=== PATIENT | male | born 1990 | race Two or more races ===

== ENCOUNTER 2018-11-08 20:45 | Emergency (ER) | payer BC ==
[~2018-11-08] VITALS: Ht 182.9 cm; Wt 130.6 kg
[2018-11-08 23:18] VITALS: BP 157/95
[2018-11-08] MEDS ORDERED: diazePAM 5 MG TABLET PO ONE (23:55)
[2018-11-08] MEDS ORDERED: DEXAMETHASONE SOD PHOS 20 MG/5 ML VIAL. IM ONE (23:55)
[2018-11-08] MEDS ORDERED: ORPH100T PO (23:56)
[2018-11-08] MEDS ORDERED: NAPR-514 PO (23:56)
--- NOTE | 2018-11-08 23:56 | PHYS DOC ---
Past Medical History Past Medical History: No Pertinent History Additional Past Medical Histor: CHRONIC BACK PAIN (RUBEN TOLEDO APRN) Past Surgical History: No Surgical History (RUBEN TOLEDO APRN) Alcohol Use: None Drug Use: None Social History Narrative: PT REPORTS THAT HE QUIT USING ALCOHOL AND DRUGS 4 WEEKS AGO (RUBEN TOLEDO APRN) Adult General Chief Complaint Chief Complaint: BACK PAIN OR INJURY HPI HPI Patient is a 28 year old male who presents to the ER with complaints of low back pain. He reports a hx of chronic sciatica in both legs. Tonight the pain is effecting his left low back and left leg. Pt states he is out of his muscle relaxers, he is unsure of what the medication name is. He denies any saddle anesthesia, loss of bowel/bladder control, or recent injury. His pain is a 10/ 10 at this time, there are no alleviating factors. The pain increases with movement. (RUBEN TOLEDO APRN) Review of Systems Review of Systems Constitutional: Denies fever or chills [] Musculoskeletal: See HPI Integument: Denies rash or skin lesions [] Neurologic: Denies headache, focal weakness or sensory changes [] (RUBEN TOLEDO APRN) Current Medications Current Medications Current Medications Medications (Trade) Dose Ordered Sig/Gabino Start Time Stop Time Status Last Admin Dose Admin Dexamethasone Sodium Phosphate (Decadron) 10 mg 1X ONCE 11/08/18 23:55 11/08/18 23:56 DC 11/09/18 00:01 10 MG Diazepam (Valium) 5 mg 1X ONCE 11/08/18 23:55 11/08/18 23:56 DC 11/09/18 00:00 5 MG (BALDOMERO MEJIA MD) Allergies Allergies Allergies Coded Allergies Type Severity Reaction Last Updated Verified No Known Drug Allergies 07/30/14 No (BALDOMERO MEJIA MD) Physical Exam Physical Exam Constitutional: Well developed, well nourished, no acute distress, non-toxic appearance, obese. [] HENT: Normocephalic, atraumatic, bilateral external ears normal, nose normal. [ ] Eyes: conjunctiva normal, no discharge. [] Neck: Normal range of motion, no stridor. [] Lungs & Thorax: respirations even and unlabored. Skin: Warm, dry, no erythema, no rash. [] Back: No bony tenderness, left lumbar paraspinal TTP, left straight leg lift positive for increased pain Extremities: No cyanosis, ROM intact Neurologic: Alert and oriented X 3, normal motor function, normal sensory function, no focal deficits noted. [] Psychologic: Affect normal, judgement normal, mood normal. [] (RUBEN TOLEDO APRN) Current Patient Data Vital Signs Vital Signs Date Time Temp Pulse Resp B/P (MAP) Pulse Ox O2 Delivery O2 Flow Rate FiO2 11/08/18 23:18 98.3 76 18 157/95 (115) 99 Room Air 98.3 (BALDOMERO MEJIA MD) EKG EKG [] (RUBEN TOLEDO APRN) Radiology/Procedures Radiology/Procedures [] (RUBEN TOLEDO APRN) Course & Med Decision Making Course & Med Decision Making Pertinent Labs and Imaging studies reviewed. (See chart for details) Dx: chronic back pain Patient was given 5 mg of by mouth Valium, and 10 mg of IM Decadron in the emergency department. Prescription was written for 100 mg of orphenadrine twice a day 10 days and 500 mg of naproxen twice a day 10 days. Patient was instructed to follow-up with primary care doctor, return to the ER symptoms worsen. Patient verbalized an understanding of home care, medications, follow-up, and return to ED instructions and was in agreement with the plan of care. [] (RUBEN TOLEDO APRN) Course & Med Decision Making Staff Physician Addendum: I was working in the ER during the course of this patient's visit. I was available for consultation as needed, but I was not directly involved in the care of this patient. (BALDOMERO MEJIA MD) Dragon Disclaimer Dragon Disclaimer This electronic medical record was generated, in whole or in part, using a voice recognition dictation system. (RUBEN TOLEDO APRN) Departure Departure Impression: Primary Impression: Chronic low back pain with left-sided sciatica Disposition: HOME, SELF-CARE Condition: STABLE Referrals: NO PCP (PCP) Patient Instructions: Sciatica, [id number] Additional Instructions: Fill prescriptions and use them as directed. Activity as tolerated. Follow-up with your primary care doctor if symptoms persist, return to the ER symptoms worsen. Scripts Naproxen (NAPROXEN) 500 Mg Tablet 1 TAB PO BID PRN for PAIN for 10 Days, #20 TAB 0 Refills Prov: RUBEN TOLEDO APRN 11/08/18 Orphenadrine Citrate (ORPHENADRINE CITRATE) 100 Mg Tablet.er 1 TAB PO BID PRN for PAIN for 10 Days, #20 TAB 0 Refills Prov: RUBEN TOLEDO APRN 11/08/18 Problem Qualifiers Primary Impression: Chronic low back pain with left-sided sciatica Back pain laterality: left Qualified Codes: M54.42 - Lumbago with sciatica, left side; G89.29 - Other chronic pain RUBEN TOLEDO APRN Nov 08, 2018 23:56 BALDOMERO MEJIA MD Nov 13, 2018 07:53
== END 2018-11-09 00:16 | disposition home or self-care (01) ==
LOC: ER 20:45
DX: M54.42 Lumbago with sciatica, left side (principal); G89.29 Other chronic pain
CPT/HCPCS: 96372; 99283; J1100

== ENCOUNTER 2018-11-11 12:52 | Emergency (ER) | payer BC ==
[~2018-11-11] VITALS: Ht 182.9 cm; Wt 128.4 kg
[~2018-11-11 12:52] MED LIST: NAPR-514 PO; ORPH100T PO
[2018-11-11 13:19] VITALS: BP 157/95
[2018-11-11] MEDS: NAPROXEN 500 MG TABLET PO STA (13:28)
--- NOTE | 2018-11-11 13:28 | PHYS DOC ---
Past Medical History Past Medical History: No Pertinent History Additional Past Medical Histor: CHRONIC BACK PAIN Past Surgical History: No Surgical History Alcohol Use: None Drug Use: None Adult General Chief Complaint Chief Complaint: BACK PAIN - NO INJURY HPI HPI Patient is a 28 year old male with history of chronic low back pain presenting today complaining of 10 out of 10 left low back pain chronic in nature. She denies any known injury. Denies any numbness or tingling to bilateral lower extremities, denies any loss of bowel/bladder function. He states the pain radiates to the left lower extremity. He states his been following up with a chiropractor. He states the chiropractor recommended he gets an MRI of his lumbar spine. Patient is loud as we talk stating he was seen in the ED 3 days ago and given a muscle relaxer which is doing nothing for him. He states he was also given naproxen which is doing nothing for pain. He states he was given a steroid shot in the ED which did nothing for him. He is demanding pain medicine now. Informed him we can give him pain medicine in the Ed but he has no indication for narcotic pain medicine at home. RX for diclofenac and cyclobenzaprine as well as medrol dose pack provided. Review of Systems Review of Systems Constitutional: Denies fever or chills [] Musculoskeletal: Reports chronic low back pain radiating to the left lower extremity Integument: Denies rash or skin lesions [] Neurologic: Denies headache, focal weakness or sensory changes [] All other systems were reviewed and found to be within normal limits, except as documented in this note. Current Medications Current Medications Current Medications Medications (Trade) Dose Ordered Sig/Gabino Start Time Stop Time Status Last Admin Dose Admin Acetaminophen/ Hydrocodone Bitart (Lortab 5/325) 2 tab 1X ONCE 11/11/18 13:30 11/11/18 13:31 DC 11/11/18 13:41 2 TAB Cyclobenzaprine HCl (Flexeril) 10 mg 1X ONCE 11/11/18 13:30 11/11/18 13:31 DC 11/11/18 13:41 10 MG Naproxen (Naprosyn) 500 mg 1X STAT 11/11/18 13:28 11/11/18 13:31 DC 11/11/18 13:28 500 MG Allergies Allergies Allergies Coded Allergies Type Severity Reaction Last Updated Verified No Known Drug Allergies 07/30/14 No Physical Exam Physical Exam Constitutional: Well developed, well nourished, no acute distress, non-toxic appearance. [] Abdomen: Bowel sounds normal, soft, no tenderness, no masses, no pulsatile masses. [] Skin: Warm, dry, no erythema, no rash. [] Back: No tenderness, no CVA tenderness. [] Extremities: No tenderness, no cyanosis, no clubbing, ROM intact, no edema. [] Neurologic: Alert and oriented X 3, normal motor function, normal sensory function, no focal deficits noted. [] Psychologic: Affect normal, judgement normal, mood normal. [] Current Patient Data Vital Signs Vital Signs Date Time Temp Pulse Resp B/P (MAP) Pulse Ox O2 Delivery O2 Flow Rate FiO2 11/11/18 13:41 16 99 Room Air 11/11/18 13:19 98.6 84 157/95 (115) 98.6 EKG EKG [] Radiology/Procedures Radiology/Procedures [] Course & Med Decision Making Course & Med Decision Making Pertinent Labs and Imaging studies reviewed. (See chart for details) see HPI Dragon Disclaimer Dragon Disclaimer This electronic medical record was generated, in whole or in part, using a voice recognition dictation system. Departure Departure Impression: Primary Impression: Chronic low back pain with left-sided sciatica Disposition: HOME, SELF-CARE Condition: STABLE Referrals: NO PCP (PCP) CESILIA MÉNDEZ MD call the office and follow up as soon as you can Patient Instructions: Back Pain, Adult, Sciatica, [id number] Additional Instructions: You have chronic low back pain. We provided you a pain clinic doctor, contact the office and follow-up with as soon as you can. We also provided you doctor' s list with primary care doctors, establish care with them and follow-up for your chronic back pain. Scripts Cyclobenzaprine Hcl (CYCLOBENZAPRINE HCL) 10 Mg Tablet 1 TAB PO TID, #30 TAB Prov: JEREMIAH KEN SURGICAL SCRUB TECHNICIAN 11/11/18 Diclofenac Sodium (DICLOFENAC SODIUM) 50 Mg Tablet.dr 1 TAB PO BID, #20 TAB 0 Refills Prov: MUTUNGAJEREMIAH SURGICAL SCRUB TECHNICIAN 11/11/18 Methylprednisolone (MEDROL) 4 Mg Tab.ds.pk 1 PKG PO UD, #1 PKG Prov: MUTUNGA,JEREMIAH SURGICAL SCRUB TECHNICIAN 11/11/18 Problem Qualifiers Primary Impression: Chronic low back pain with left-sided sciatica Back pain laterality: left Qualified Codes: M54.42 - Lumbago with sciatica, left side; G89.29 - Other chronic pain JEREMIAH KEN APRN Nov 11, 2018 13:28
[2018-11-11] MEDS: HYDROcodone/APAP 5/325MG 1 TAB TABLET PO ONE (13:41)
[2018-11-11] MEDS: CYCLOBENZAPRINE 10 MG TABLET. PO ONE (13:41)
[2018-11-11] MEDS ORDERED: METH4TAB2 PO (13:53)
[2018-11-11] MEDS ORDERED: DICL50TA4 PO (13:53)
[2018-11-11] MEDS ORDERED: CYCL10TA2 PO (13:53)
== END 2018-11-11 14:01 | disposition home or self-care (01) ==
LOC: ER 12:52
DX: G89.29 Other chronic pain (principal); M54.42 Lumbago with sciatica, left side
CPT/HCPCS: 99284

== ENCOUNTER 2019-12-22 10:11 | Emergency (ER) | payer BC ==
[~2019-12-22] VITALS: Ht 185.4 cm; Wt 127.0 kg
[~2019-12-22 10:11] MED LIST changes: +CYCL10TA2 PO; +DICL50TA4 PO; +METH4TAB2 PO
[2019-12-22 10:55] VITALS: BP 154/95
[2019-12-22] MEDS ORDERED: KETOROLAC 60 MG/2 ML VIAL. IM ONE (12:00)
--- NOTE | 2019-12-22 12:04 | PHYS DOC ---
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 Patient stated he had low back pain with radiation to posterior of left lower extremity started 6 weeks ago and was seen by a chiropractor with improvement of his pain but for the last 3 weeks has had constant left lower extremity pain and numbness that getting worse with activity. Patient denies injury, weakness, urine or bowel incontinence, abdominal pain, nausea and vomiting, urinary symptom. Patient stated he took oxycodone that he bought from the street without improvement of his pain. Review of Systems: Review of Systems: Constitutional: Denies fever or chills. [] Eyes: Denies change in visual acuity. [] HENT: Denies nasal congestion or sore throat. [] Respiratory: Denies cough or shortness of breath. [] Cardiovascular: Denies chest pain or edema. [] GI: Denies abdominal pain, nausea, vomiting, bloody stools or diarrhea. [] : Denies dysuria. [] Musculoskeletal: Reports back and joint pain Integument: Denies rash. [] Neurologic: Denies headache, focal weakness or sensory changes. [] Endocrine: Denies polyuria or polydipsia. [] Lymphatic: Denies swollen glands. [] Psychiatric: Denies depression or anxiety. [] Heart Score: Risk Factors: Risk Factors: DM, Current or recent (<one month) smoker, HTN, HLP, family history of CAD, obesity. Risk Scores: Score 0 - 3: 2.5% MACE over next 6 weeks - Discharge Home Score 4 - 6: 20.3% MACE over next 6 weeks - Admit for Clinical Observation Score 7 - 10: 72.7% MACE over next 6 weeks - Early Invasive Strategies Allergies: Allergies: Allergies Coded Allergies Type Severity Reaction Last Updated Verified No Known Drug Allergies 07/30/14 No Physical Exam: PE: Constitutional: Well developed, well nourished, mild distress, non-toxic a ppearance. [] HENT: Normocephalic, atraumatic. Eyes: PERRLA, EOMI, conjunctiva normal, no discharge. [] Neck: Normal range of motion, no tenderness, supple, no stridor. [] Cardiovascular:Heart rate regular rhythm, no murmur [] Lungs & Thorax: Bilateral breath sounds clear to auscultation [] Abdomen: Bowel sounds normal, soft, no tenderness, no masses, no pulsatile masses. [] Skin: Warm, dry, no erythema, no rash. [] Back: No midline tenderness, no CVA tenderness. [] Extremities: Left lower extremity with bony mass in medial of knee that according to the patient was there since he was a child with no change of size. No tenderness, subjective paresthesia of left lower extremity, no cyanosis, no clubbing, ROM intact, no edema. [] Neurologic: Alert and oriented X 3, no focal deficits noted. [] Psychologic: Affect anxious, judgement normal, mood normal. [] Current Patient Data: Vital Signs: Vital Signs Date Time Temp Pulse Resp B/P (MAP) Pulse Ox O2 Delivery O2 Flow Rate FiO2 12/22/19 10:55 98.2 90 16 154/95 (114) 98 Room Air 98.2 EKG: EKG: [] Radiology/Procedures: Radiology/Procedures: [facility] [address] [place], [place] [id number] IMAGING REPORT Signed PATIENT: RAISSA VIZCARRA ACCOUNT: [id number] : 1990 LOCATION: ER AGE: 29 SEX: M EXAM STATUS: REG ER ORD. PHYSICIAN: MARLO DOWELL MD REASON: low back pain x 6 weeks PROCEDURE: CT LUMBAR SPINE WO CONTRAST Examination: CT lumbar spine and pelvis without contrast HISTORY: History of low back pain COMPARISON: None available Technique: Axial CT images of the lumbar spine were performed without contrast. Axial CT images of the pelvis performed without contrast. Coronal and sagittal deformities are performed Exposure: One or more of the following individualized dose reduction techniques were utilized for this examination: 1. Automated exposure control 2. Adjustment of the mA and/or kV according to patient size 3. Use of iterative reconstruction technique FINDINGS: The lumbar vertebral body heights are maintained. The bilateral facets are well aligned. Minimal disc bulge identified at L1-L2, L2-L3 vertebral level causing minimal anterior thecal sac impression. There is posterior disc bulge identified at L3-L4 vertebral level causing moderate spinal canal stenosis. There is moderate disc bulge identified at L4-L5 vertebral level causing moderate spinal canal stenosis and mild bilateral neural foraminal narrowing. Moderate disc bulge/protrusion identified at L5-S1 causing moderate spinal canal stenosis and moderate bilateral neural foraminal narrowing. The bilateral femoral heads within the acetabula. There is no obvious acute fracture identified. The urinary bladder is mildly distended IMPRESSION: 1. Multilevel disc bulges most at L5-S1 vertebral level as described above. Follow-up MRI can be considered. Electronically signed by: Alen Rodriguez MD (12/22/2019 12:38 PM) [id number] DICTATED and SIGNED BY: ALEN RODRIGUEZ MD DATE: 12/22/19 1238 Course & Med Decision Making: Course & Med Decision Making Pertinent Imaging studies reviewed. (See chart for details) Discharge: I've spoken with the patient and/or caregivers. I've explained the patient's condition, diagnosis and treatment plan based on information available to me at this time. I've answered the patient's and/or caregivers questions and addressed any concerns. The patient and/or caregivers have a good understanding the patient's diagnosis, condition and treatment plan as can be expected at this p oint. Vital signs have been stabilized. The patient's condition is stable for discharge from the emergency department. The patient will pursue further outpatient evaluation with her primary care provider or other designated consulting physician as outlined in the discharge instructions. Patient and/or caregivers are agreeable to this plan of care and follow-up instructions have been explained in detail. The patient and/or caregivers have received these instructions in written format and expressed understanding of these discharge instructions. The patient and her caregivers are aware that if any significant change in condition or worsening of symptoms should prompt him to immediately return to this of the closest emergency department. If an emergent department is not readily available I would encourage him to call 911. Emery Disclaimer: Emery Disclaimer: This electronic medical record was generated, in whole or in part, using a voice recognition dictation system. Departure Departure Impression: Primary Impression: Sciatic radiculitis Additional Impression: Bulging of lumbar intervertebral disc without myelopathy Disposition: HOME, SELF-CARE (At 1304) Condition: IMPROVED Referrals: NO PCP (PCP) REGINE RANGEL MD Patient Instructions: Lumbosacral Radiculopathy, Sciatica Additional Instructions: Apply ice on your back Follow-up with your primary care physician in 3-5 days Return to ER if not getting better Follow-up with on-call neurosurgeon for bulging disc Thank you for visiting [facility]. We appreciate you trusting us with your care. If any additional problems come up don't hesitate to return to visit us. Please follow up with your primary care provider so they can plan additional care if needed and know about the problem that you had. If symptoms worsen come back to the Emergency Department. Any concerning symptoms that start such as chest pain, shortness of air, weakness or numbness on one side of the body, running high fevers or any other concerning symptoms return to the ER. Scripts Cyclobenzaprine Hcl (CYCLOBENZAPRINE HCL) 10 Mg Tablet 1 TAB PO TID, #21 TAB Prov: MARLO DOWELL MD 12/22/19 Naproxen (NAPROSYN) 500 Mg Tablet 1 TAB PO BID for pain, #20 TAB Prov: MARLO DOWELL MD 12/22/19 Methylprednisolone (MEDROL) 4 Mg Tab.ds.pk 1 PKG PO UD for inflammation, #1 PKG Prov: MARLO DOWELL MD 12/22/19 MARLO DOWELL MD Dec 22, 2019 12:04
--- NOTE | 2019-12-22 12:40 | RAD ---
Examination: CT lumbar spine and pelvis without contrast HISTORY: History of low back pain COMPARISON: None available Technique: Axial CT images of the lumbar spine were performed without contrast. Axial CT images of the pelvis performed without contrast. Coronal and sagittal deformities are performed Exposure: One or more of the following individualized dose reduction techniques were utilized for this examination: 1. Automated exposure control 2. Adjustment of the mA and/or kV according to patient size 3. Use of iterative reconstruction technique FINDINGS: The lumbar vertebral body heights are maintained. The bilateral facets are well aligned. Minimal disc bulge identified at L1-L2, L2-L3 vertebral level causing minimal anterior thecal sac impression. There is posterior disc bulge identified at L3-L4 vertebral level causing moderate spinal canal stenosis. There is moderate disc bulge identified at L4-L5 vertebral level causing moderate spinal canal stenosis and mild bilateral neural foraminal narrowing. Moderate disc bulge/protrusion identified at L5-S1 causing moderate spinal canal stenosis and moderate bilateral neural foraminal narrowing. The bilateral femoral heads within the acetabula. There is no obvious acute fracture identified. The urinary bladder is mildly distended IMPRESSION: 1. Multilevel disc bulges most at L5-S1 vertebral level as described above. Follow-up MRI can be considered. Electronically signed by: Alen Rodriguez MD (12/22/2019 12:38 PM) [id number]
[2019-12-22] MEDS ORDERED: METH4TAB2 PO (13:07)
[2019-12-22] MEDS ORDERED: NAPR-683 PO (13:07)
[2019-12-22] MEDS ORDERED: CYCL10TA2 PO (13:07)
== END 2019-12-22 13:13 | disposition home or self-care (01) ==
LOC: ER 10:11
DX: M54.10 Radiculopathy, site unspecified (principal); M25.552 Pain in left hip; M54.5 Low back pain; R20.0 Anesthesia of skin; G89.29 Other chronic pain; F14.90 Cocaine use, unspecified, uncomplicated; Z87.891 Personal history of nicotine dependence
CPT/HCPCS: 72131; 72192; 96372; 99285; J1885

== ENCOUNTER 2019-12-28 14:52 | Emergency (ER) | payer SELFPAY ==
[~2019-12-28] VITALS: Ht 185.4 cm; Wt 127.0 kg
[~2019-12-28 14:52] MED LIST changes: +NAPR-683 PO
[2019-12-28 15:08] VITALS: BP 138/84
[2019-12-28] MEDS ORDERED: DEXAMETHASONE SOD PHOS 20 MG/5 ML VIAL. IM ONE (15:15)
[2019-12-28] MEDS ORDERED: ORPHENADRINE CITRATE 60 MG/2 ML VIAL. IM ONE (15:15)
[2019-12-28] MEDS ORDERED: oxyCODONE/APAP 5/325 1 TAB TABLET PO ONE (15:15)
[2019-12-28] MEDS ORDERED: METH-38 PO (15:17)
[2019-12-28] MEDS ORDERED: PRED20TA PO (15:17)
[2019-12-28] MEDS ORDERED: OXYC1TAB15 PO (15:17)
[2019-12-28] MEDS ORDERED: KETO10TA PO (15:17)
--- NOTE | 2019-12-28 15:17 | PHYS DOC ---
Past Medical History Past Medical History: Other Additional Past Medical Histor: CHRONIC BACK PAIN Past Surgical History: No Surgical History Smoking Status: Former Smoker Alcohol Use: None Drug Use: None General Adult EDM: Chief Complaint: LOWER BACK PAIN OR INJURY HPI: HPI: Patient is a 29-year-old male with a history of back pain with left-sided sciatica. He has been treated with steroids muscle relaxers anti-inflammatories all have largely been unsuccessful he has had no difficulty with his bowel or bladder. Today he felt some pain into his right hip saw at an urgent care who was concerned that he had cauda equina. He was sent here for evaluation. [] Review of Systems: Review of Systems: Constitutional: Denies fever or chills. [] Eyes: Denies change in visual acuity. [] HENT: Denies nasal congestion or sore throat. [] Respiratory: Denies cough or shortness of breath. [] Cardiovascular: Denies chest pain or edema. [] GI: Denies abdominal pain, nausea, vomiting, bloody stools or diarrhea. [] : Per HPI [] Musculoskeletal: Per HPI [] Integument: Denies rash. [] Neurologic: Denies headache, focal weakness or sensory changes. [] Endocrine: Denies polyuria or polydipsia. [] Lymphatic: Denies swollen glands. [] Psychiatric: Denies depression or anxiety. [] Heart Score: Risk Factors: Risk Factors: DM, Current or recent (<one month) smoker, HTN, HLP, family history of CAD, obesity. Risk Scores: Score 0 - 3: 2.5% MACE over next 6 weeks - Discharge Home Score 4 - 6: 20.3% MACE over next 6 weeks - Admit for Clinical Observation Score 7 - 10: 72.7% MACE over next 6 weeks - Early Invasive Strategies Current Medications: Current Medications Medications (Trade) Dose Ordered Sig/Gabino Start Time Stop Time Status Last Admin Dose Admin Dexamethasone Sodium Phosphate (Decadron) 10 mg 1X ONCE 12/28/19 15:15 12/28/19 15:16 UNV Orphenadrine Citrate (Norflex) 60 mg 1X ONCE 12/28/19 15:15 12/28/19 15:16 UNV Oxycodone/ Acetaminophen (Percocet 5/325) 2 tab 1X ONCE 12/28/19 15:15 12/28/19 15:16 UNV Allergies: Allergies: Allergies Coded Allergies Type Severity Reaction Last Updated Verified No Known Drug Allergies 07/30/14 No Physical Exam: PE: Constitutional: Well developed, well nourished, n appears uncomfortable [] HENT: Normocephalic, atraumatic, bilateral external ears normal, oropharynx moist, no oral exudates, nose normal. [] Eyes: PERRLA, EOMI, conjunctiva normal, no discharge. [] Neck: Normal range of motion, no tenderness, supple, no stridor. [] Cardiovascular:Heart rate regular rhythm, no murmur [] Lungs & Thorax: Bilateral breath sounds clear to auscultation [] Abdomen: Bowel sounds normal, soft, no tenderness, no masses, no pulsatile masses, good rectal tone. [] Skin: Warm, dry, no erythema, no rash. [] Back: No tenderness, no CVA tenderness. [] Extremities: No tenderness, no cyanosis, no clubbing, ROM intact, no edema. [] Neurologic: Alert and oriented X 3, normal motor function, normal sensory function, no focal deficits noted, normal patellar reflexes bilaterally. [] Psychologic: Anxious. [] EKG: EKG: [] Radiology/Procedures: Radiology/Procedures: [] Course & Med Decision Making: Course & Med Decision Making Pertinent Labs and Imaging studies reviewed. (See chart for details) [ED course: Evaluation reveals a 29-year-old male with low back pain and left- sided sciatica. I have reassured the patient that he does not have cauda equina today.] Dragon Disclaimer: Emery Disclaimer: This electronic medical record was generated, in whole or in part, using a voice recognition dictation system. Departure Departure Impression: Primary Impression: Chronic low back pain with left-sided sciatica Qualified Codes: M54.42 - Lumbago with sciatica, left side; G89.29 - Other chronic pain Disposition: 01 HOME, SELF-CARE Condition: STABLE Referrals: NO PCP (PCP) REGINE RANGEL MD Call office to schedule follow up Patient Instructions: Sciatica, Sciatica with [facility] Additional Instructions: Return to the emergency department with any new or concerning symptoms Scripts Ketorolac Tromethamine (KETOROLAC TROMETHAMINE) 10 Mg Tablet 1 TAB PO TID, #15 TAB Prov: JUAN F ANTHONY DO 12/28/19 Methocarbamol (ROBAXIN-750) 750 Mg Tablet 1 TAB PO TID, #90 TAB Prov: JUAN F ANTHONY DO 12/28/19 Prednisone (PREDNISONE) 20 Mg Tablet 3 TAB PO DAILY PRN for COUGH for 7 Days, #21 TAB Prov: JUAN F ANTHONY DO 12/28/19 Oxycodone/Apap 5-325 (PERCOCET 5-325 MG TABLET ) 1 Each Tablet 1 TAB PO PRN Q6HRS PRN for PAIN, #20 TAB 0 Refills Prov: JUAN F ANTHONY DO 12/28/19 JUAN F ANTHONY DO Dec 28, 2019 15:17
== END 2019-12-28 15:34 | disposition home or self-care (01) ==
LOC: ER 14:52
DX: M54.42 Lumbago with sciatica, left side (principal); G89.29 Other chronic pain; Z87.891 Personal history of nicotine dependence
CPT/HCPCS: 96372; 99284; J1100; J2360